=== PATIENT | male | born 1960 | race Hispanic/Latino ===

== ENCOUNTER 2018-07-20 13:19 | Inpatient (IN) | payer BC ==
[2018-07-20 13:24] VITALS: BMI 28.5
--- NOTE | 2018-07-20 13:40 | ED PDOC ---
Arrival/HPI - General Chief Complaint: Chest Pain Time Seen by Provider: 07/20/18 13:22 Historian: Patient - History of Present Illness Narrative History of Present Illness (Text): 07/20/18 13:37 A 58 year old male, whose past medical history includes non- compliant hypertension and diabetes, presents to the emergency department from PMD's office for abnormal EKG findings. Patient notes that he has been experiencing chest pain since 05/23. The patient notes that the pain come on intermittently and feels like pressure. The patient denies fevers, chills, headache, dizziness, shortness of breath, dyspnea on exertion, cough, abdominal pain, nausea, vomiting, diarrhea, back pain, neck pain, urinary/bowel changes, or any other complaint. PMD: Dr. Kulkarni Time/Duration: Prior to Arrival Symptom Onset: Sudden Symptom Course: Unchanged Activities at Onset: Rest, Light Context: Other (PMD's office) Past Medical History - Provider Review Nursing Documentation Reviewed: Yes - Infectious Disease Hx of Infectious Diseases: None - Cardiac Hx Hypertension: Yes - Endocrine/Metabolic Hx Diabetes Mellitus Type 2: Yes - Psychiatric Hx Substance Use: No - Surgical History Other/Comment: cyst removal to L upper back - Anesthesia Hx Anesthesia Reactions: No Hx Malignant Hyperthermia: No Family/Social History - Physician Review Nursing Documentation Reviewed: Yes Family/Social History: No Known Family HX Smoking Status: Current Some Days Smoker Hx Alcohol Use: Yes Frequency of alcohol use: Socially Hx Substance Use: No Allergies/Home Meds Allergies/Adverse Reactions: Allergies No Known Allergies Allergy (Verified 07/20/18 13:25) Review of Systems - Physician Review All systems were reviewed & negative as marked: Yes - Review of Systems Constitutional: absent: Fevers Respiratory: absent: SOB, Cough Cardiovascular: Chest Pain. absent: FRANK Gastrointestinal: absent: Abdominal Pain, Stool Changes, Diarrhea, Nausea, Vomiting Genitourinary Male: absent: Urinary Output Changes Musculoskeletal: absent: Back Pain, Neck Pain Neurological: absent: Headache, Dizziness Physical Exam Vital Signs Reviewed: Yes Vital Signs Temp Pulse Resp BP Pulse Ox 07/20/18 13:21 98.1 F 72 18 205/103 H 97 Temperature: Afebrile Blood Pressure: Hypertensive Pulse: Regular Respiratory Rate: Normal Appearance: Positive for: Well-Appearing, Non-Toxic, Comfortable Pain Distress: None Mental Status: Positive for: Alert and Oriented X 3 - Systems Exam Head: Present: Atraumatic, Normocephalic Pupils: Present: PERRL Extroacular Muscles: Present: EOMI Conjunctiva: Present: Normal Mouth: Present: Moist Mucous Membranes Neck: Present: Normal Range of Motion Respiratory/Chest: Present: Clear to Auscultation, Good Air Exchange. No: Respiratory Distress, Accessory Muscle Use Cardiovascular: Present: Regular Rate and Rhythm, Normal S1, S2. No: Murmurs Abdomen: No: Tenderness, Distention, Peritoneal Signs Back: Present: Normal Inspection Upper Extremity: Present: Normal Inspection. No: Cyanosis, Edema Lower Extremity: Present: Normal Inspection. No: Edema Neurological: Present: GCS=15, CN II-XII Intact, Speech Normal Skin: Present: Warm, Dry, Normal Color. No: Rashes Psychiatric: Present: Alert, Oriented x 3, Normal Insight, Normal Concentration Medical Decision Making ED Course and Treatment: 07/20/18 13:40 Impression: A 58 year old male presents to the emergency department from PMD's office s/p abnormal EKG reading. Plan: -- EKG -- Chest X-ray -- Urinalysis -- Labs -- Aspirin -- Reassess and disposition Prior Visits: Notes and results from previous visits were reviewed. Progress Notes: EKG shows NSR at 69 [address]PM. Non- specific ST- T wave changes. Suspicious for [facility]. 07/20/18 14:23: Case discussed in detail with Dr. Armando Byrd (Hospitalist). Chest X-ray Dictator : Rickey Carter MD Report Date : 07/20/2018 14:34:45 IMPRESSION: No active disease. 07/20/18 14:51: Case discussed in detail with Dr. Ulloa. - Lab Interpretations I have reviewed the lab results: Yes - RAD Interpretation Radiology Orders: 07/20/18 13:29 CHEST PORTABLE [RAD] Stat - EKG Interpretation Interpreted by ED Physician: Yes Type: 12 lead EKG - Medication Orders Current Medication Orders: Discontinued Medications Aspirin (Aspirin) 325 mg PO STAT STA Stop: 07/20/18 13:30 - Scribe Statement The provider has reviewed the documentation as recorded by the Kieranibe Kaitlyn Eduardo Provider Scribe Attestation: All medical record entries made by the Scribe were at my direction and personally dictated by me. I have reviewed the chart and agree that the record accurately reflects my personal performance of the history, physical exam, medical decision making, and the department course for this patient. I have also personally directed, reviewed, and agree with the discharge instructions and disposition. Disposition/Present on Arrival - Present on Arrival History of DVT/PE: No History of Uncontrolled Diabetes: No Urinary Catheter: No History of Decub. Ulcer: No History Surgical Site Infection Following: None - Disposition Forms: [employer] (Vietnamese)
[2018-07-20 13:52] LABS: BASO # 0.04 K/mm3 (0.0-2.0); BASO % 0.6 % (0.0-3.0); EOS # 0.1 (0.0-0.7); EOS % 1.9 % (1.5-5.0); LYMPH # 2.6 (1.2-3.4); MEAN CELL VOLUME 90.6 fl (80.0-105.0); MEAN CORPUSCULAR HEMOGLOBIN 31.4 pg (25.0-35.0); MEAN CORPUSCULAR HGB CONC 34.6 g/dl (31.0-37.0); MEAN PLATELET VOLUME 11.3 fl (7.0-11.0); MONO # 0.5 (0.1-0.6); MONO % 6.8 % (1.0-6.0); RBC 4.78 10^6/uL (3.5-6.1); RED CELL DISTRIBUTION WIDTH 12.9 % (11.5-14.5); WHITE BLOOD COUNT 6.8 10^3/uL (4.5-11.0)
[2018-07-20 14:01] LABS: PARTIAL THROMBOPLASTIN TIME 33.2 Seconds (26.9-38.3); PROTHROMBIN TIME 11.1 SECONDS (9.4-12.5)
[2018-07-20 14:04] LABS: ALB/GLOB RATIO 1.4 (1.1-1.8); ALBUMIN 4.2 g/dL (3.0-4.8); ALT/SGPT 19 U/L (7-56); AST/SGOT 31 U/L (17-59); BLOOD UREA NITROGEN 8 mg/dL (7-21); CALCIUM 9.3 mg/dL (8.4-10.5); GFR NON-AFRICAN AMERICAN > 60
[2018-07-20 14:14] LABS: TROPONIN I < 0.01 ng/mL
[2018-07-20 14:25] LABS: URINE BILIRUBIN NEGATIVE (NEGATIVE); URINE BLOOD NEGATIVE (NEGATIVE); URINE GLUCOSE (UA) NEGATIVE (NEGATIVE); URINE LEUKOCYTE ESTERASE SMALL Leu/uL (NEGATIVE); URINE PROTEIN NEGATIVE mg/dL (<30 mg/dL); URINE UROBILINOGEN 0.2 E.U./dL (<1 E.U./dL)
[2018-07-20 14:26] LABS: URINE APPEARANCE CLEAR (CLEAR); URINE COLOR YELLOW (YELLOW)
[2018-07-20 14:35] LABS: URINE RBC 0 - 2 /hpf (0-2)
[2018-07-20 14:36] LABS: URINE BACTERIA FEW /hpf
--- NOTE | 2018-07-20 14:38 | RAD ---
Date of service: 07/20/2018 HISTORY: cp COMPARISON: No prior. TECHNIQUE: 1 view obtained. FINDINGS: LUNGS: No active pulmonary disease. PLEURA: No significant pleural effusion identified, no pneumothorax apparent. CARDIOVASCULAR: No aortic atherosclerotic calcification present. Normal cardiac size. No pulmonary vascular congestion. OSSEOUS STRUCTURES: No significant abnormalities. VISUALIZED UPPER ABDOMEN: Normal. OTHER FINDINGS: None. IMPRESSION: No active disease.
[2018-07-20] MEDS ORDERED: Enoxaparin 100 mg Syringe SC STA (14:51)
--- NOTE | 2018-07-20 15:16 | CP.PCM.HP ---
<Stefanie Ahmadi - Last Filed: 07/20/18 15:19> History of Present Illness - History of Present Illness History of Present Illness: HISTORY & PHYSICAL NOTE FOR DR. AVA Ahmadi PGY1 58 y/o M HTN, DM2, HLD, GERD presents to ED with complaints of diffuse chest pain that he has noticed over the past 2 months that comes & goes, occurs at rest, that he describes as "arthritis like pain", lasts about 20 minutes, alleviated with holding his breath and taking aspirin. He reports he was at his PMDs office where his BP was in the 200s and was sent to ED. He was given BP meds at the clinic that he does not recall. He reports non-compliance with his home medications since 2 years ago and has not followup up regularly with his PMD. He reports taking zantac often for his symptoms of GERD. He otherwise denies fevers, chills, headache, dizziness, shortness of breath, dyspnea on exertion, cough, nausea, vomiting, diarrhea, back pain, neck pain, urinary/bowel changes. PMH: HTN, DM2, HLD, GERD All: NKDA PSH: L back cyst removal FH: Father: , 54 y/o CVA. Mother: , 49 y/o PA SH: Active tobacco smoker, 1 pack/day x 45yrs. Occasional ETOH use. 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 Nazario Pharmacy: [facility] Present on Admission - Present on Admission Any Indicators Present on Admission: No Review of Systems - Review of Systems Review of Systems: per HPI Past Patient History - Infectious Disease Hx of Infectious Diseases: None - Past Social History Smoking Status: Current Some Days Smoker - CARDIAC Hx Hypertension: Yes - ENDOCRINE/METABOLIC Hx Diabetes Mellitus Type 2: Yes - PSYCHIATRIC Hx Substance Use: No - SURGICAL HISTORY Other/Comment: cyst removal to L upper back - ANESTHESIA Hx Anesthesia Reactions: No Hx Malignant Hyperthermia: No Meds Allergies/Adverse Reactions: Allergies Allergy/AdvReac Type Severity Reaction Status Date / Time No Known Allergies Allergy Verified 07/20/18 15:24 Results - Vital Signs Recent Vital Signs: Last Vital Signs Temp 98.1 F 07/20/18 13:21 Pulse 62 04/23/19 14:15 Resp 18 07/20/18 14:15 BP 156/71 H 07/20/18 14:15 Pulse Ox 96 07/20/18 14:15 - Labs Result Diagrams: 07/20/18 13:40 07/20/18 13:40 Labs: Laboratory Results - last 24 hr 07/20/18 07/20/18 07/20/18 13:40 13:40 13:40 WBC 6.8 RBC 4.78 Hgb 15.0 Hct 43.3 MCV 90.6 MCH 31.4 MCHC 34.6 RDW 12.9 Plt Count 198 MPV 11.3 H Neut % (Auto) 52.7 Lymph % (Auto) 38.0 H [place] % (Auto) 6.8 H Eos % (Auto) 1.9 Baso % (Auto) 0.6 Lymph # (Auto) 2.6 [place] # (Auto) 0.5 Eos # (Auto) 0.1 Baso # (Auto) 0.04 Absolute Neuts (auto) 3.59 PT 11.1 INR 1.00 APTT 33.2 Sodium 140 Potassium 4.0 Chloride 105 Carbon Dioxide 26 Anion Gap 13 BUN 8 Creatinine 0.7 L Est GFR ( Amer) > 60 Est GFR (Non-Af Amer) > 60 Random Glucose 157 H Calcium 9.3 Magnesium 2.0 Total Bilirubin 0.3 AST 31 ALT 19 Alkaline Phosphatase 84 Lactate Dehydrogenase 474 Total Creatine Kinase 155 Troponin I < 0.01 Total Protein 7.2 Albumin 4.2 Globulin 2.9 Albumin/Globulin Ratio 1.4 Urine Color Urine Appearance Urine pH Ur Specific [place] Urine Protein Urine Glucose (UA) Urine Ketones Urine Blood Urine Nitrate Urine Bilirubin Urine Urobilinogen Ur Leukocyte Esterase Urine RBC Urine WBC Ur Epithelial Cells Urine Bacteria 07/20/18 14:15 WBC RBC Hgb Hct MCV MCH MCHC RDW Plt Count MPV Neut % (Auto) Lymph % (Auto) [place] % (Auto) Eos % (Auto) Baso % (Auto) Lymph # (Auto) [place] # (Auto) Eos # (Auto) Baso # (Auto) Absolute Neuts (auto) PT INR APTT Sodium Potassium Chloride Carbon Dioxide Anion Gap BUN Creatinine Est GFR ( Amer) Est GFR (Non-Af Amer) Random Glucose Calcium Magnesium Total Bilirubin AST ALT Alkaline Phosphatase Lactate Dehydrogenase Total Creatine Kinase Troponin I Total Protein Albumin Globulin Albumin/Globulin Ratio Urine Color Yellow Urine Appearance Clear Urine pH 7.0 Ur Specific [place] <= 1.005 Urine Protein Negative Urine Glucose (UA) Negative Urine Ketones Negative Urine Blood Negative Urine Nitrate Negative Urine Bilirubin Negative Urine Urobilinogen 0.2 Ur Leukocyte Esterase Small H Urine RBC 0 - 2 Urine WBC 2 - 5 Ur Epithelial Cells None Urine Bacteria Few Assessment & Plan - Assessment and Plan (Free Text) Assessment: 58 y/o M with PMH of HTN, DM2, HLD, GERD presents to ED with complaints of chest pain with EKG changes Plan: Chest Pain r/o ACS trend troponins Q6h Loading dose aspirin/plavix & therapeutic lovenix given in ED Continue aspirin daily Start statin, b-jacy f/u TSH Cardiology consulted, reviewed EKG, not STEMI plan for cardiac catheterization tomorrow DM2 Start insulin sliding scale F/u Hgb a1c hold home metformin HTN continue home lisinopril start metoprolol tartarate 25mg HLD Start atorvastatin f/u lipid panel DVT/GI: Lovenox/pepcid Case reviewed with attending physician, Dr. Carson Ahmadi PGY1 <Ava Byrd - Last Filed: 07/20/18 16:48> Results - Vital Signs Recent Vital Signs: Last Vital Signs Temp 98.2 F 07/20/18 15:22 Pulse 58 L 07/20/18 15:22 Resp 18 07/20/18 15:22 BP 148/68 07/20/18 15:22 Pulse Ox 96 07/20/18 15:22 - Labs Result Diagrams: 07/20/18 13:40 07/20/18 13:40 Labs: Laboratory Results - last 24 hr 07/20/18 07/20/18 07/20/18 13:40 13:40 13:40 WBC 6.8 RBC 4.78 Hgb 15.0 Hct 43.3 MCV 90.6 MCH 31.4 MCHC 34.6 RDW 12.9 Plt Count 198 MPV 11.3 H Neut % (Auto) 52.7 Lymph % (Auto) 38.0 H [place] % (Auto) 6.8 H Eos % (Auto) 1.9 Baso % (Auto) 0.6 Lymph # (Auto) 2.6 [place] # (Auto) 0.5 Eos # (Auto) 0.1 Baso # (Auto) 0.04 Absolute Neuts (auto) 3.59 PT 11.1 INR 1.00 APTT 33.2 Sodium 140 Potassium 4.0 Chloride 105 Carbon Dioxide 26 Anion Gap 13 BUN 8 Creatinine 0.7 L Est GFR ( Amer) > 60 Est GFR (Non-Af Amer) > 60 POC Glucose (mg/dL) Random Glucose 157 H Calcium 9.3 Magnesium 2.0 Total Bilirubin 0.3 AST 31 ALT 19 Alkaline Phosphatase 84 Lactate Dehydrogenase 474 Total Creatine Kinase 155 Troponin I < 0.01 Total Protein 7.2 Albumin 4.2 Globulin 2.9 Albumin/Globulin Ratio 1.4 Triglycerides Cholesterol LDL Cholesterol Direct HDL Cholesterol Free T4 TSH 3rd Generation Urine Color Urine Appearance Urine pH Ur Specific [place] Urine Protein Urine Glucose (UA) Urine Ketones Urine Blood Urine Nitrate Urine Bilirubin Urine Urobilinogen Ur Leukocyte Esterase Urine RBC Urine WBC Ur Epithelial Cells Urine Bacteria 07/20/18 07/20/18 07/20/18 14:00 14:00 14:15 WBC RBC Hgb Hct MCV MCH MCHC RDW Plt Count MPV Neut % (Auto) Lymph % (Auto) [place] % (Auto) Eos % (Auto) Baso % (Auto) Lymph # (Auto) [place] # (Auto) Eos # (Auto) Baso # (Auto) Absolute Neuts (auto) PT INR APTT Sodium Potassium Chloride Carbon Dioxide Anion Gap BUN Creatinine Est GFR ( Amer) Est GFR (Non-Af Amer) POC Glucose (mg/dL) Random Glucose Calcium Magnesium Total Bilirubin AST ALT Alkaline Phosphatase Lactate Dehydrogenase Total Creatine Kinase Troponin I Total Protein Albumin Globulin Albumin/Globulin Ratio Triglycerides 141 Cholesterol 184 LDL Cholesterol Direct 124 HDL Cholesterol 39 Free T4 1.25 TSH 3rd Generation 0.87 Urine Color Yellow Urine Appearance Clear Urine pH 7.0 Ur Specific [place] <= 1.005 Urine Protein Negative Urine Glucose (UA) Negative Urine Ketones Negative Urine Blood Negative Urine Nitrate Negative Urine Bilirubin Negative Urine Urobilinogen 0.2 Ur Leukocyte Esterase Small H Urine RBC 0 - 2 Urine WBC 2 - 5 Ur Epithelial Cells None Urine Bacteria Few 07/20/18 16:13 WBC RBC Hgb Hct MCV MCH MCHC RDW Plt Count MPV Neut % (Auto) Lymph % (Auto) [place] % (Auto) Eos % (Auto) Baso % (Auto) Lymph # (Auto) [place] # (Auto) Eos # (Auto) Baso # (Auto) Absolute Neuts (auto) PT INR APTT Sodium Potassium Chloride Carbon Dioxide Anion Gap BUN Creatinine Est GFR ( Amer) Est GFR (Non-Af Amer) POC Glucose (mg/dL) 139 H Random Glucose Calcium Magnesium Total Bilirubin AST ALT Alkaline Phosphatase Lactate Dehydrogenase Total Creatine Kinase Troponin I Total Protein Albumin Globulin Albumin/Globulin Ratio Triglycerides Cholesterol LDL Cholesterol Direct HDL Cholesterol Free T4 TSH 3rd Generation Urine Color Urine Appearance Urine pH Ur Specific [place] Urine Protein Urine Glucose (UA) Urine Ketones Urine Blood Urine Nitrate Urine Bilirubin Urine Urobilinogen Ur Leukocyte Esterase Urine RBC Urine WBC Ur Epithelial Cells Urine Bacteria Attending/Attestation - Attestation I have personally seen and examined this patient.: Yes I have fully participated in the care of the patient.: Yes I have reviewed all pertinent clinical information: Yes Notes (Text): Patient seen and examined by me with resident at approximately at 2:35PM on 07/20/18 in the ED. Case including HPI, physical exam, and assessment and plan discussed with resident. Agree with above with following additions/corrections. Patient is a 58-year-old male with past medical history significant for hypertension, type 2 diabetes, hyperlipidemia, tobacco abuse, and GERD who presents to the emergency room from his primary care doctor's office with chest pain that has been present for approximately 2 months. Patient states that he has not seen his doctor in approximately 4 to 5 years. He states he went to the office today secondary to the chest pain he has been having for 2 months. The pain comes and goes. Patient states it is not associated with anything in particular. He states the pain is across his entire chest and radiates to bilateral arms. There is no associated diaphoresis. Patient states that the pain sometimes will go away when he holds his breath. Pain can last anywhere from 10- 20 minutes. Patient does take aspirin with relief. Patient states that he thought it was "arthritis pain." No associated shortness of breath. Patient states he also has reflux and takes [id number] Zantac. Patient denies any fevers or chills. No headaches or dizziness. No change in vision. No lightheadedness. No tingling or numbness. No dysuria. No diarrhea or constipation. Patient states he used to take medications for DM2, HTN, and Hyperlipidemia but has not taken medications in 2 years because he did not want to take the medications. 12 point review of systems reviewed by me. Please see above HPI, all other systems are negative. Family history: Mother at the age of 54 of a stroke. Father of a heart attack at age 46. Physical exam: General: Awake and alert lying in bed in no acute distress HEENT: Normocephalic, atraumatic. Extraocular muscles intact. Pupils equal and reactive, no scleral icterus. Oropharynx pink and moist. No pharyngeal erythema or exudate appreciated. Neck supple. Hearing grossly intact. Ears and nose externally unremarkable. Cardiovascular: Regular rhythm. Normal S1 and S2. No murmurs, rubs, or gallops appreciated Pulmonary: Normal respiratory effort. No rhonchi, rales, or wheezing appreciated Gastrointestinal: Soft, Nontender. Nondistended. Positive bowel sounds all 4 quadrants. No guarding. Musculoskeletal: Moves all extremities. Positive bilateral calf tenderness. Bilateral lower extremities with pitting edema. Central nervous system: AAO x3. No focal deficits appreciated. Dermatologic: Skin warm and dry. Assessment and plan: Patient is a 58-year-old male with past medical history significant for hypertension, type 2 diabetes, hyperlipidemia, tobacco abuse, and GERD who presents to the emergency room from his primary care doctor's office with chest pain that has been present for approximately 2 months. 1. Chest pain. First troponin within normal limits. Follow serial troponins. Cardiology recommendations appreciated. EKG with changes. Patient given loading dose of plavix and therapeutic dose of lovenox per cardiology. Started on ASA, statin, and beta jacy. Likely for cardiac cath in AM. Monitor on telemetry. Follow up 2D echo. 2. Hypertension. Started on lopressor per cardio. Monitor blood pressure and adjust medications as needed. 3. Bilateral lower extremity edema. Postive calf tenderness. Follow up bilateral lower extremity venous dopplers to rule out DVT. 4. Noncompliance with medications. Patient counseled at length on need for compliance with home medications and follow up with primary care doctor. 5. DM2. Patient off medications for 2 years. Follow up HgbA1C. Placed on insulin sliding scale. Monitor accuchecks. 6. GERD. Placed on Pepcid. 7. Tobacco abuse. Counseled at length on tobacco cessation. 8. GI/DVT prophylaxis. Given therapeutic dose of lovenox/pepcid. Case was discussed in detail with the patient regarding current diagnosis and treatment plan. All questions answered.
[2018-07-20 16:11] LABS: HDL CHOLESTEROL 39 mg/dL (29-60)
[2018-07-20 16:22] LABS: LDL CHOLESTEROL 124 mg/dL (0-129)
[2018-07-20 16:28] LABS: FREE T4 1.25 ng/dL (0.78-2.19)
[2018-07-20] MEDS: Insulin Reg-LOW-Coverage SC SCH ×2 (17:33→21:54)
--- NOTE | 2018-07-20 18:20 | CARD ---
APPROVED REPORT Date of service: 07/20/2018 EKG Measurement Heart [id number] <Conclusion> Normal sinus rhythm Inferior infarct, age Old? ST & T wave abnormality, consider anterior ischemia Abnormal ECG
[2018-07-20] MEDS ORDERED: Pneumococcal 23-Valent Vaccine IM ONE (18:40)
--- NOTE | 2018-07-21 02:38 | CON ---
DATE: 07/20/2018 CONSULT SERVICE: Cardiology. REASON FOR CONSULTATION AND FOLLOWUP: Acute coronary syndrome, unstable angina, cardiac evaluation. BRIEF CLINICAL HISTORY: A 58-year-old male with past medical history significant for diabetes, hypertension, hyperlipidemia, noncompliance with the medication, admitted here after being sent by Dr. Nazario from her office because of complain of chest pain for 2 months, diffuse, throbbing type and sometimes increases when taking a deep breath, sometime increases on coughing. The patient is very noncompliant, does not take any medicine. In Dr. Nazario's office, the patient blood pressure was 200 so some medication was given and sent to the ER. He does have abnormal EKG. EKG shows symmetrical T inversions in V2, V3, V4, V5 but no ST elevation. But every now and then off and on chest pain and increases on exertion. PAST MEDICAL HISTORY: Significant for diabetes, hypertension, hyperlipidemia, gastroesophageal reflux. ALLERGIES: NO KNOWN DRUG ALLERGY. CURRENT MEDICATIONS: The patient is supposed to take lisinopril 10 mg daily, metformin 500 mg daily, and Zantac, but the patient does not take any medication except Zantac. FAMILY HISTORY: Significant for cardiovascular disease. Father had CVA at age of 45. Mother had myocardial infarction at age of 49. SOCIAL HISTORY: Active tobacco abuse, one pack a day since last 40 years. Socially drinks. Denies any substance abuse. 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 REVIEW OF SYSTEMS: As per HPI. PHYSICAL EXAMINATION GENERAL: As follows; Height of the patient 6 feet, weight of the patient 210 pounds, body mass index 28.5 kg/m2. VITAL SIGNS: Temperature afebrile, heart rate 56, blood pressure 148/68. HEENT: PERRLA. Extraocular muscles intact. NECK: Supple. No carotid bruits. No thyromegaly. CHEST: Clear to auscultation. HEART: S1, S2 regular. ABDOMEN: Soft. EXTREMITIES: Clubbing and cyanosis negative. LABORATORY DATA: Blood workup as follows; WBC 6.8, hemoglobin 15, hematocrit 43.3, platelet count 198. Chemistry shows sodium 140, potassium 4, chloride 105, carbon dioxide 26, anion gap of 13, BUN 8, creatinine 0.7. Troponin 0.01. EKG shows normal sinus, T inversions in V2, V3, V4, Q-wave in II, III, cannot rule out previous TX of indeterminate age. IMPRESSION: A 58-year-old male with past medical history of diabetes, hypertension, hyperlipidemia, noncompliance with medication, admitted with chest pain, unstable angina with abnormal electrocardiogram. So far troponin remains negative. Very noncompliant with medication. RECOMMENDATIONS: Lipid profile, TSH, hemoglobin A1c. Start Lovenox. Load with Plavix and aspirin. Keep n.p.o. after 12 midnight for possible cardiac catheterization in the morning. Further recommendations after cardiac catheterization. We will follow with you. Thank you Dr. Byrd for providing this opportunity in taking care of the patient, Dimsa Tillman. Shwetha Ulloa MD
[2018-07-21 05:41] VITALS: O2SAT 94
[2018-07-21] MEDS ORDERED: Lidocaine PF 2% (5 ml) Inj (For Cardiac Arrhy) ONE (06:42)
[2018-07-21] MEDS ORDERED: Verapamil 2 ML ONE (06:42)
[2018-07-21] MEDS ORDERED: Iohexol 350mgl/ml 50 ML ONE (06:43)
[2018-07-21] MEDS ORDERED: Phenylephrine 10 mg/ml Inj ONE (06:43)
[2018-07-21] MEDS ORDERED: Iodixanol 320 MG/ML 100 ML BOTTLE IV ONE (06:43)
[2018-07-21] MEDS ORDERED: Iodixanol 320 MG/ML 200 ML BOTTLE IV ONE (06:43)
[2018-07-21] MEDS ORDERED: Nitroglycerin 50mg in D5W 50 MG/250 ML BOTTLE IV ONE (06:43)
[2018-07-21] MEDS ORDERED: Heparin 2,000 ML IV ONE (06:44)
[2018-07-21] MEDS ORDERED: Midazolam 2 MG/2 ML VIAL ONE ×2 (07:15→07:29)
[2018-07-21 07:26] LABS: BASO # 0.03 K/mm3 (0.0-2.0); BASO % 0.4 % (0.0-3.0); EOS # 0.2 (0.0-0.7); EOS % 2.8 % (1.5-5.0); HEMOGLOBIN 14.5 g/dL (14.0-18.0); LYMPH # 3.3 (1.2-3.4); LYMPH % 45.1 % (22.0-35.0); MEAN CELL VOLUME 91.4 fl (80.0-105.0); MEAN CORPUSCULAR HEMOGLOBIN 31.2 pg (25.0-35.0); MEAN CORPUSCULAR HGB CONC 34.1 g/dl (31.0-37.0); MEAN PLATELET VOLUME 11.6 fl (7.0-11.0); MONO # 0.5 (0.1-0.6); MONO % 7.3 % (1.0-6.0); RBC 4.65 10^6/uL (3.5-6.1); RED CELL DISTRIBUTION WIDTH 13.1 % (11.5-14.5); WHITE BLOOD COUNT 7.3 10^3/uL (4.5-11.0)
[2018-07-21] MEDS ORDERED: Eptifibatide 20 mg/10mL Inj IVP ONE (07:59)
[2018-07-21 08:02] LABS: ALB/GLOB RATIO 1.4 (1.1-1.8); ALBUMIN 3.7 g/dL (3.0-4.8); ALT/SGPT 26 U/L (7-56); AST/SGOT 33 U/L (17-59); BLOOD UREA NITROGEN 11 mg/dL (7-21); CALCIUM 9.1 mg/dL (8.4-10.5); GFR NON-AFRICAN AMERICAN > 60
[2018-07-21] MEDS ORDERED: Sodium Chloride 0.9% 1,000 ML IV SCH (08:45)
[2018-07-21] MEDS: Insulin Reg-LOW-Coverage SC SCH ×3 (09:00→17:00)
[2018-07-21 09:02] VITALS: TEMP 97.6
--- NOTE | 2018-07-21 09:09 | CP.PCM.PN ---
Subjective - Date & Time of Evaluation Date of Evaluation: 07/21/18 Time of Evaluation: 08:30 - Subjective Subjective: INTERNAL MEDICINE PROGRESS NOTE FOR DR. TRAVIS Ahmadi PGY1 Objective - Vital Signs/Intake and Output Vital Signs (last 24 hours): Temp Pulse Resp BP Pulse Ox 97.6 F 57 L 18 143/83 94 L 07/21/18 08:45 07/21/18 08:45 07/21/18 08:45 07/21/18 08:45 07/21/18 05:39 Intake and Output: 07/21/18 07/21/18 06:59 18:59 Intake Total 420 Output Total 5 Balance 415 - Medications Medications: Current Medications Aspirin (Ecotrin) [address] [facility] Atorvastatin Calcium (Lipitor) [address] [facility] Last Admin: 07/20/18 17:31 Dose: 40 mg Clopidogrel Bisulfate (Plavix) [address] [facility] Famotidine (Pepcid) 20 mg PO 1000,2200 [facility] Last Admin: 07/20/18 21:54 Dose: 20 mg Sodium Chloride (Sodium Chloride 0.9%) 1,000 mls @ 100 mls/hr IV .Q10H [facility] Stop: 07/21/18 14:00 Insulin Human Regular (Humulin R Low) [address] [facility]; Protocol Last Admin: 07/20/18 21:54 Dose: Not Given Lisinopril (Zestril) 2.[address] [facility] Metoprolol Tartrate (Lopressor) 25 mg PO 0800,1800 [facility] Last Admin: 07/21/18 07:59 Dose: Not Given - Labs Labs: 07/21/18 07:10 07/21/18 07:10 PT 11.1 SECONDS (9.4-12.5) 07/20/18 13:40 INR 1.00 07/20/18 13:40 APTT 33.2 Seconds (26.9-38.3) 07/20/18 13:40 Assessment and Plan - Assessment and Plan (Free Text) Assessment: 58 y/o M with PMH of HTN, DM2, HLD, GERD presents to ED with complaints of chest pain with EKG changes in septal Plan: Chest Pain r/o ACS EKG revealing t-wave inversions in septo-lateral leads Loading dose aspirin/plavix & therapeutic lovenix given yesterday Continue aspirin daily Start statin, b-jacy TSH wnl Cardiology consulted, reviewed EKG, not STEMI plan for cardiac catheterization tomorrow DM2 A1c: 7.8% Start insulin sliding scale F/u Hgb a1c hold home metformin staff educator ordered HTN continue home lisinopril start metoprolol tartarate 25mg HLD Start atorvastatin f/u lipid panel GERD continue pepcid DVT/GI: Lovenox/pepcid Case reviewed with attending physician, Dr. Travis Ahmadi PGY1
--- NOTE | 2018-07-21 09:16 | CPOSTOP ---
DATE: 07/21/2018 CARDIOVASCULAR LAB POST PROCEDURE NOTE PHYSICIAN: Shwetha Ulloa MD SHIFT COORDINATOR: Antoinette Wyman, jewelry technician. TYPE OF ANESTHESIA: Moderate conscious sedation. Total 3 mg of Versed and 150 of fentanyl given periodically. Started 1 mg of Versed and 50 of fentanyl. PRE-PROCEDURE DIAGNOSES: Unstable angina and acute coronary syndrome. PROCEDURE PERFORMED: 1. Left heart catheterization. 2. Stenting of mid left anterior descending. FINDINGS: Mid LAD 85% stenosis, RCA chronic total occlusion, mild aortic stenosis. Two vessel disease. Left anterior descending , RCA chronic total occlusion. POST PROCEDURE CONDITION: The patient's condition is stable. VASCULAR ACCESS SITE: Left radial artery. CLOSURE DEVICE: TR-band. TOTAL RADIATION DOSE: 92141.5 milligray unit. TOTAL CUMULATIVE DOSE: 5523.4 milligray unit. FLUORO TIME: 6.9 minutes. Shwetha Ulloa MD
--- NOTE | 2018-07-21 09:45 | US ---
HISTORY: Leg pain and swelling. Evaluate for DVT PHYSICIAN(S): Edgar Kincaid MD. TECHNIQUE: Duplex sonography and color-flow Doppler with graded compression were used to evaluate the deep venous systems of both lower extremities. FINDINGS: The visualized deep venous systems of both lower extremities are sonographically normal and compressible. Normal wave forms and augmentation are seen. There is no sonographic evidence for deep venous thrombosis in the visualized segments of both lower extremities. IMPRESSION: No sonographic evidence for deep venous thrombosis in the visualized segments of both lower extremities.
[2018-07-21] MEDS ORDERED: Enoxaparin 40 mg Syringe SC SCH (10:00)
--- NOTE | 2018-07-21 10:42 | CP.PCM.DIS ---
<Stefanie Ahmadi - Last Filed: 07/21/18 11:10> Provider - Provider Date of Admission: 07/20/18 14:25 Attending physician: Ava Byrd DO Primary care physician: Lucille Nazario MD Consults: 07/20/18 18:40 Inpatient ENGINEER [employer]PR[employer] Core Measures Referral Routine Comment: Physician Instructions: Reason For Exam: EVALUATION Transition In Care/Readmission Reduction Routine Comment: Physician Instructions: Reason For Exam: EVALUATION 07/20/18 21:43 Consult [Physician Consult] Routine Comment: ACS Consulting Provider: Shwetha Ulloa Consulting Physician: Shwetha Ulloa Reason for Consult: ACS 07/20/18 23:46 Diabetic Education Referral Routine Comment: non-compliant with medications at home Physician Instructions: Reason For Exam: protocol Time Spent in preparation of Discharge (in minutes): 45 Diagnosis - Discharge Diagnosis (1) Stenosis of left anterior descending (LAD) artery Status: Resolved (2) RCA occlusion Status: Chronic (3) Diabetes Status: Chronic (4) Hypertension Status: Chronic (5) GERD (gastroesophageal reflux disease) Status: Chronic (6) Coronary artery disease Status: Chronic Hospital Course - Lab Results Lab Results: Most Recent Lab Values WBC 7.3 10^3/uL (4.5-11.0) 07/21/18 07:10 RBC 4.65 10^6/uL (3.5-6.1) 07/21/18 07:10 Hgb 14.5 g/dL (14.0-18.0) 07/21/18 07:10 Hct 42.5 % (42.0-52.0) 07/21/18 07:10 MCV 91.4 fl (80.0-105.0) 07/21/18 07:10 MCH 31.2 pg (25.0-35.0) 07/21/18 07:10 MCHC 34.1 g/dl (31.0-37.0) 07/21/18 07:10 RDW 13.1 % (11.5-14.5) 07/21/18 07:10 Plt Count 190 10^3/uL (120.0-450.0) 07/21/18 07:10 MPV 11.6 fl (7.0-11.0) H 07/21/18 07:10 Neut % (Auto) 44.4 % (50.0-68.0) L 07/21/18 07:10 Lymph % (Auto) 45.1 % (22.0-35.0) H 07/21/18 07:10 [place] % (Auto) 7.3 % (1.0-6.0) H 07/21/18 07:10 Eos % (Auto) 2.8 % (1.5-5.0) 07/21/18 07:10 Baso % (Auto) 0.4 % (0.0-3.0) 07/21/18 07:10 Lymph # (Auto) 3.3 (1.2-3.4) 07/21/18 07:10 [place] # (Auto) 0.5 (0.1-0.6) 07/21/18 07:10 Eos # (Auto) 0.2 (0.0-0.7) 07/21/18 07:10 Baso # (Auto) 0.03 K/mm3 (0.0-2.0) 07/21/18 07:10 Absolute Neuts (auto) 3.23 (1.4-6.5) 07/21/18 07:10 PT 11.1 SECONDS (9.4-12.5) 07/20/18 13:40 INR 1.00 07/20/18 13:40 APTT 33.2 Seconds (26.9-38.3) 07/20/18 13:40 Sodium 140 mmol/L (132-148) 07/21/18 07:10 Potassium 4.1 mmol/L (3.6-5.0) 07/21/18 07:10 Chloride 107 mmol/L (98-107) 07/21/18 07:10 Carbon Dioxide 28 mmol/L (21-33) 07/21/18 07:10 Anion Gap 9 (10-20) L 07/21/18 07:10 BUN 11 mg/dL (7-21) 07/21/18 07:10 Creatinine 0.8 mg/dl (0.8-1.5) 07/21/18 07:10 Est GFR ( Amer) > 60 07/21/18 07:10 Est GFR (Non-Af Amer) > 60 07/21/18 07:10 POC Glucose (mg/dL) 156 mg/dL (65-110) H 07/21/18 09:06 Random Glucose 134 mg/dL (70-110) H 07/21/18 07:10 Hemoglobin A1c 7.8 % (4.2-6.5) H 07/20/18 14:00 Calcium 9.1 mg/dL (8.4-10.5) 07/21/18 07:10 Phosphorus 3.7 mg/dL (2.5-4.5) 07/21/18 07:10 Magnesium 2.0 mg/dL (1.7-2.2) 07/21/18 07:10 Total Bilirubin 0.6 mg/dL (0.2-1.3) 07/21/18 07:10 AST 33 U/L (17-59) 07/21/18 07:10 ALT 26 U/L (7-56) 07/21/18 07:10 Alkaline Phosphatase 83 U/L (38-126) 07/21/18 07:10 Lactate Dehydrogenase 474 U/L (333-699) 07/20/18 13:40 Total Creatine Kinase 155 U/L (35-230) 07/20/18 13:40 Troponin I < 0.01 ng/mL 07/21/18 02:01 Total Protein 6.4 g/dL (5.8-8.3) 07/21/18 07:10 Albumin 3.7 g/dL (3.0-4.8) 07/21/18 07:10 Globulin 2.7 gm/dL 07/21/18 07:10 Albumin/Globulin Ratio 1.4 (1.1-1.8) 07/21/18 07:10 Triglycerides 141 mg/dL (35-160) 07/20/18 14:00 Cholesterol 184 mg/dL (130-200) 07/20/18 14:00 LDL Cholesterol Direct 124 mg/dL (0-129) 07/20/18 14:00 HDL Cholesterol 39 mg/dL (29-60) 07/20/18 14:00 Free T4 1.25 ng/dL (0.78-2.19) 07/20/18 14:00 TSH 3rd Generation 0.87 mIU/mL (0.46-4.68) 07/20/18 14:00 Urine Color Yellow (YELLOW) 07/20/18 14:15 Urine Appearance Clear (CLEAR) 07/20/18 14:15 Urine pH 7.0 (4.7-8.0) 07/20/18 14:15 Ur Specific [place] <= 1.005 (1.005-1.035) 07/20/18 14:15 Urine Protein Negative mg/dL (<30 mg/dL) 07/20/18 14:15 Urine Glucose (UA) Negative mg/dL (NEGATIVE) 07/20/18 14:15 Urine Ketones Negative mg/dL (NEGATIVE) 07/20/18 14:15 Urine Blood Negative (NEGATIVE) 07/20/18 14:15 Urine Nitrate Negative (NEGATIVE) 07/20/18 14:15 Urine Bilirubin Negative (NEGATIVE) 07/20/18 14:15 Urine Urobilinogen 0.2 E.U./dL (<1 E.U./dL) 07/20/18 14:15 Ur Leukocyte Esterase Small Gamaliel/uL (NEGATIVE) H 07/20/18 14:15 Urine RBC 0 - 2 /hpf (0-2) 07/20/18 14:15 Urine WBC 2 - 5 /hpf (0-6) 07/20/18 14:15 Ur Epithelial Cells None /hpf (0-5) 07/20/18 14:15 Urine Bacteria Few /hpf (NONE) 07/20/18 14:15 - Hospital Course Hospital Course: Upon Admission: 58 y/o M HTN, DM2, HLD, GERD presents to ED with complaints of diffuse chest pain that he has noticed over the past 2 months that comes & goes, occurs at rest, that he describes as "arthritis like pain", lasts about 20 minutes, alleviated with holding his breath and taking aspirin. He reports he was at his PMDs office where his BP was in the 200s and was sent to ED. He was given BP meds at the clinic that he does not recall. He reports non-compliance with his home medications since 2 years ago and has not followup up regularly with his PMD. He reports taking zantac often for his symptoms of GERD. Hospital Course: Abdnormal EKG revealed symmetrical T wave inversion in V2 V3, V4, V5 but no ST elevations. troponin levels were (-) x 3. SBP upon presentation was in 200s. Loading dose of aspirin/plavix and therapeutic dose of lovenox were given in ED. He was evaluated by cardiology and taken to laborer cutting tool the next morning and found to have 85% stenosis of mid LAD with placement of ARDEN. Pt was also found to have complete RCA occlusion. L wrist radial access was used. Pt tolerated procedure well. Echocardiogram was performed Upon Discharge: Pt is feeling better. He is resting comfortably. He is denying chest pain, palpitations. His vitals have been stable. Labs wnl. He was evaluated by cardiology post-procedure and was instructed to follow-up closely with PMD & butadiene convertor operator. PT advised on smoking cessation, lifestyle modification, medication compliance and close outpatient followup. Pt instructed to visit closest ED if symptoms return or if he experiences new symptoms. Discharge Exam - Eye Exam Eye Exam: EOMI, Normal appearance - ENT Exam ENT Exam: Normal Exam - Neck Exam Neck exam: Normal Inspection - Respiratory Exam Respiratory Exam: NORMAL BREATHING PATTERN, UNREMARKABLE - Cardiovascular Exam Cardiovascular Exam: Bradycardia, REGULAR RHYTHM, +S1, +S2 - GI/Abdominal Exam GI & Abdominal Exam: Soft - Back Exam Back exam: NORMAL INSPECTION - Neurological Exam Neurological exam: Alert, Oriented x3 - Psychiatric Exam Psychiatric exam: Normal Affect, Normal Mood - Skin Skin Exam: Dry, Intact, Warm Discharge Plan - Discharge Medications Prescriptions: Aspirin [Ecotrin] 81 mg PO DAILY #30 tabec Atorvastatin [Lipitor] 40 mg PO DAILY #30 tab Carvedilol [Coreg] 3.125 mg PO BID 30 Days #60 tab Clopidogrel [Plavix] 75 mg PO DAILY #30 tab Lisinopril [Zestril] 2.5 mg PO DAILY #14 tab metFORMIN [glucOPHAGE] 500 mg PO BID #60 tab - Follow Up Plan Condition: STABLE Disposition: HOME/ ROUTINE Instructions: Cardiac Catheterization, Coronary Angioplasty (DC), Heart Disease in Diabetics (DC), Coronary Heart Disease (DC), Hypertension (DC) Additional Instructions: Patient Instructions: 1. Please STOP taking the following medication that you were taking at home Lisinopril 10mg Please do NOT start Metoprolol 25mg You are being discharged on new medications that you should start taking at home. Please START taking the following medications as prescribed: Aspirin 81mg. Take 1 tablet by mouth once a day Plavix 75mg. Take 1 tablet by mouth once a day Atorvastatin 40mg. Take 1 tablet by mouth at night time Lisinopril 2.5mg. Take 1 tablet by mouth once day Carvedilol 3.125mg. Take 1 tablet by mouth twice a day Metformin 500mg. Take 1 tablet by mouth twice a day Metformin 500mg: Take 1 tablet in the morning and 1 tablet in the evening- Please do NOT start this medication until 07/24/2018. You received IV contrast during your cardiac catheterization so this medication is contraindicated for 48 hours after contrast administration. 2. Follow up with your primary care physician, Dr. Nazario and your butadiene convertor operator (Heart Doctor, Dr. Ulloa) within 3-5 from discharge from the hospital 3. Please review the results of your echocardiogram (heart ultrasound) with your doctors. 4. Please go to the nearest emergency room for evaluation of new or returning symptoms including but not limited to intractable headache, fever, chills, dizziness, chest pain, shortness of breath, abdominal pain, nausea, vomiting, diarrhea, constipation, and urinary symptoms Referrals: Shwetha Ulloa MD [Staff Provider] - Lucille Johnson MD [Primary Care Provider] - <Ava Byrd - Last Filed: 07/22/18 16:28> Provider - Provider Date of Admission: 07/20/18 14:25 Attending physician: Ava Byrd DO Primary care physician: Lucille Nazario MD Consults: 07/20/18 18:40 Inpatient ENGINEER [employer] Core Measures Referral Routine Comment: Physician Instructions: Reason For Exam: EVALUATION Transition In Care/Readmission Reduction Routine Comment: Physician Instructions: Reason For Exam: EVALUATION 07/20/18 21:43 Consult [Physician Consult] Routine Comment: ACS Consulting Provider: Shwetha Ulloa Consulting Physician: Shwetha Ulloa Reason for Consult: ACS 07/20/18 23:46 Diabetic Education Referral Routine Comment: non-compliant with medications at home Physician Instructions: Reason For Exam: protocol Hospital Course - Lab Results Lab Results: Micro Results 07/20/18 15:00 Urine,Clean Catch Urine Culture - Final No Growth (<1,000 CFU/ML) Most Recent Lab Values WBC 7.1 10^3/uL (4.5-11.0) 07/21/18 12:45 RBC 4.97 10^6/uL (3.5-6.1) 07/21/18 12:45 Hgb 15.4 g/dL (14.0-18.0) 07/21/18 12:45 Hct 45.4 % (42.0-52.0) 07/21/18 12:45 MCV 91.3 fl (80.0-105.0) 07/21/18 12:45 MCH 31.0 pg (25.0-35.0) 07/21/18 12:45 MCHC 33.9 g/dl (31.0-37.0) 07/21/18 12:45 RDW 13.0 % (11.5-14.5) 07/21/18 12:45 Plt Count 203 10^3/uL (120.0-450.0) 07/21/18 12:45 MPV 11.3 fl (7.0-11.0) H 07/21/18 12:45 Neut % (Auto) 51.7 % (50.0-68.0) 07/21/18 12:45 Lymph % (Auto) 36.1 % (22.0-35.0) H 07/21/18 12:45 [place] % (Auto) 9.5 % (1.0-6.0) H 07/21/18 12:45 Eos % (Auto) 2.0 % (1.5-5.0) 07/21/18 12:45 Baso % (Auto) 0.7 % (0.0-3.0) 07/21/18 12:45 Lymph # (Auto) 2.6 (1.2-3.4) 07/21/18 12:45 [place] # (Auto) 0.7 (0.1-0.6) H 07/21/18 12:45 Eos # (Auto) 0.1 (0.0-0.7) 07/21/18 12:45 Baso # (Auto) 0.05 K/mm3 (0.0-2.0) 07/21/18 12:45 Absolute Neuts (auto) 3.66 (1.4-6.5) 07/21/18 12:45 PT 11.1 SECONDS (9.4-12.5) 07/20/18 13:40 INR 1.00 07/20/18 13:40 APTT 33.2 Seconds (26.9-38.3) 07/20/18 13:40 Sodium 140 mmol/L (132-148) 07/21/18 12:45 Potassium 4.3 mmol/L (3.6-5.0) 07/21/18 12:45 Chloride 105 mmol/L (98-107) 07/21/18 12:45 Carbon Dioxide 27 mmol/L (21-33) 07/21/18 12:45 Anion Gap 12 (10-20) 07/21/18 12:45 BUN 11 mg/dL (7-21) 07/21/18 12:45 Creatinine 0.7 mg/dl (0.8-1.5) L 07/21/18 12:45 Est GFR ( Amer) > 60 07/21/18 12:45 Est GFR (Non-Af Amer) > 60 07/21/18 12:45 POC Glucose (mg/dL) 148 mg/dL (65-110) H 07/21/18 16:05 Random Glucose 151 mg/dL (70-110) H 07/21/18 12:45 Hemoglobin A1c 7.8 % (4.2-6.5) H 07/20/18 14:00 Calcium 9.5 mg/dL (8.4-10.5) 07/21/18 12:45 Phosphorus 3.7 mg/dL (2.5-4.5) 07/21/18 07:10 Magnesium 2.0 mg/dL (1.7-2.2) 07/21/18 07:10 Total Bilirubin 0.6 mg/dL (0.2-1.3) 07/21/18 07:10 AST 33 U/L (17-59) 07/21/18 07:10 ALT 26 U/L (7-56) 07/21/18 07:10 Alkaline Phosphatase 83 U/L (38-126) 07/21/18 07:10 Lactate Dehydrogenase 474 U/L (333-699) 07/20/18 13:40 Total Creatine Kinase 155 U/L (35-230) 07/20/18 13:40 Troponin I < 0.01 ng/mL 07/21/18 02:01 Total Protein 6.4 g/dL (5.8-8.3) 07/21/18 07:10 Albumin 3.7 g/dL (3.0-4.8) 07/21/18 07:10 Globulin 2.7 gm/dL 07/21/18 07:10 Albumin/Globulin Ratio 1.4 (1.1-1.8) 07/21/18 07:10 Triglycerides 141 mg/dL (35-160) 07/20/18 14:00 Cholesterol 184 mg/dL (130-200) 07/20/18 14:00 LDL Cholesterol Direct 124 mg/dL (0-129) 07/20/18 14:00 HDL Cholesterol 39 mg/dL (29-60) 07/20/18 14:00 Free T4 1.25 ng/dL (0.78-2.19) 07/20/18 14:00 TSH 3rd Generation 0.87 mIU/mL (0.46-4.68) 07/20/18 14:00 Urine Color Yellow (YELLOW) 07/20/18 14:15 Urine Appearance Clear (CLEAR) 07/20/18 14:15 Urine pH 7.0 (4.7-8.0) 07/20/18 14:15 Ur Specific [place] <= 1.005 (1.005-1.035) 07/20/18 14:15 Urine Protein Negative mg/dL (<30 mg/dL) 07/20/18 14:15 Urine Glucose (UA) Negative mg/dL (NEGATIVE) 07/20/18 14:15 Urine Ketones Negative mg/dL (NEGATIVE) 07/20/18 14:15 Urine Blood Negative (NEGATIVE) 07/20/18 14:15 Urine Nitrate Negative (NEGATIVE) 07/20/18 14:15 Urine Bilirubin Negative (NEGATIVE) 07/20/18 14:15 Urine Urobilinogen 0.2 E.U./dL (<1 E.U./dL) 07/20/18 14:15 Ur Leukocyte Esterase Small Gamaliel/uL (NEGATIVE) H 07/20/18 14:15 Urine RBC 0 - 2 /hpf (0-2) 07/20/18 14:15 Urine WBC 2 - 5 /hpf (0-6) 07/20/18 14:15 Ur Epithelial Cells None /hpf (0-5) 07/20/18 14:15 Urine Bacteria Few /hpf (NONE) 07/20/18 14:15 Attending/Attestation - Attestation I have personally seen and examined this patient.: Yes I have fully participated in the care of the patient.: Yes I have reviewed all pertinent clinical information, including history, physical exam and plan: Yes Notes (Text): Please note this DC summary is for 07/21/18 Patient seen and examined by me with resident at approximately 9:40AM and prior to discharge on 07/21/18. Case including discharge plan discussed with resident. Agree with above with following additions/corrections. Patient is a 58-year-old male with past medical history significant for hypertension, type 2 diabetes, hyperlipidemia, tobacco abuse, and GERD who presents to the emergency room from his primary care doctor's office with chest pain that has been present for approximately 2 months. Please see H&P for full details. Patient was admitted with chest pain, hypertension, bilateral lower extremity edema, noncompliance with medications, DM2, GERD, and tobacco abuse. EKG changes were noted. Troponins were within normal limits. Patient was seen by his butadiene convertor operator. Patient was given a loading dose of Plavix and therapeutic Lovenox in the emergency room. Patient was started on aspirin, Lipitor, and metoprolol. Patient went for cardiac catheterization following day. Patient was found to have critical LAD stenosis of 85% which was stented, RCA was found have chronic total occlusion, preserved LV function, mild gradient of aortic valve. 2-D echo was ordered and done. Patient was advised to follow primary care doctor for results. Primary care doctor was also notified. Metoprolol was stopped. Per butadiene convertor operator, Dr. Ulloa, patient was given RX for Coreg 3.125mg PO BID. Patient also complained of lower extremity edema and calf tenderness. Bilateral lower extremity venous Dopplers were done and were negative for DVT. Patient was found to have an hemoglobin A1c of 7.8. Patient had not been taking his medications for several years. Patient to restart metformin on 07/24/2018 this patient had cardiac catheterization done. Patient was placed on Pepcid for history of GERD. Patient was counseled at length on smoking cessation. Patient was also counseled at length the need for compliance with home medications and follow-up with his primary care doctor. Chest pain resolved. Patient was cleared for discharge by butadiene convertor operator. Patient was discharged home. On day of discharge, patient stated he was feeling better. Patient denied any chest pain. Patient denied pain at cardiac cath left radial site. No shortness of breath or palpitations. No nausea, vomiting, or abdominal pain. Patient was tolerating diet well. No headaches or dizziness. No fevers or chills. No dysuria. Patient was ambulating well. Physical exam: General: Awake and alert lying in bed in no acute distress HEENT: Normocephalic, atraumatic. Extraocular muscles intact. Pupils equal and reactive, no scleral icterus. Oropharynx pink and moist. No pharyngeal erythema or exudate appreciated. Neck supple. Hearing grossly intact. Ears and nose externally unremarkable. Cardiovascular: Regular rhythm. Normal S1 and S2. No murmurs, rubs, or gallops appreciated Pulmonary: Normal respiratory effort. No rhonchi, rales, or wheezing appreciated Gastrointestinal: Soft, Nontender. Nondistended. Positive bowel sounds all 4 quadrants. No guarding. Musculoskeletal: Moves all extremities. Mild calf tenderness bilaterally. Trace lower extremity edema. Central nervous system: AAO x3. No focal deficits appreciated. Dermatologic: Skin warm and dry. Please see chart for full details. Follow up instructions: Patient to follow-up with primary care doctor within 3-5 days. Patient to follow up with Dr. Ulloa within 3-5 days. Patient to stop smoking and take medications as prescribed. All instructions explained to the patient in detail. Patient both understands and agrees to all instructions. Stuart eisenberg instructions also given. Time spent in discharging the patient including chart review, medication reconciliation, discussion with the patient, medical research scientist, consultants, and nursing staff was approximately 45 minutes.
--- NOTE | 2018-07-21 11:49 | PN ---
DATE: 07/21/2018 REASON FOR CONSULTATION AND FOLLOWUP: Acute coronary syndrome, unstable angina. SUBJECTIVE: The patient denies any chest pain, short of breath or any palpitation. The patient not in apparent distress, is status post PTCA of LAD. Feels okay. PHYSICAL EXAMINATION: VITAL SIGNS: Temperature afebrile, heart rate 56, blood pressure 162/74. HEENT: PERRLA. Extraocular muscles intact. NECK: Supple. No carotid bruits. No thyromegaly. CHEST: Clear to auscultation. HEART: S1, S2 regular. ABDOMEN: Soft. EXTREMITIES: Clubbing and cyanosis negative. LABORATORY DATA: EKG shows normal sinus, biphasic T-wave in anterior leads and inferior wall IN of indeterminate age. IMPRESSION: A 58-year-old male with a past medical history significant for hypertension, very noncompliant, does not take medicine 2 years, admitted after being sent for the Port-A-Cath because of the chest pain with acute coronary syndrome. The patient underwent left heart catheterization, found to have critical disease, LAD 85% stenosis, stented. RCA, chronic total occlusion, preserved LV function, mild gradient of aortic valve. RECOMMENDATIONS: Continue aspirin, continue Plavix mandatory for one year, preferably extended period of time. Continue , lisinopril, atorvastatin, and metoprolol. If he remain stable, possible discharge home today. Followup as an outpatient. We will get echo to assess LV function. Thank you Dr. Byrd for providing this opportunity in taking care of the patient, Layne Cochran. Shwetha Ulloa MD
--- NOTE | 2018-07-21 13:03 | CARD ---
APPROVED REPORT Date of service: 07/21/2018 EKG Measurement Heart [id number] <Conclusion> Sinus bradycardia Inferior infarct, age Old? ST & T wave abnormality, consider anterolateral ischemia Abnormal ECG
[2018-07-21 13:04] LABS: BASO # 0.05 K/mm3 (0.0-2.0); BASO % 0.7 % (0.0-3.0); EOS # 0.1 (0.0-0.7); HEMOGLOBIN 15.4 g/dL (14.0-18.0); LYMPH # 2.6 (1.2-3.4); LYMPH % 36.1 % (22.0-35.0); MEAN CELL VOLUME 91.3 fl (80.0-105.0); MEAN CORPUSCULAR HGB CONC 33.9 g/dl (31.0-37.0); MEAN PLATELET VOLUME 11.3 fl (7.0-11.0); MONO # 0.7 (0.1-0.6); MONO % 9.5 % (1.0-6.0); RBC 4.97 10^6/uL (3.5-6.1); WHITE BLOOD COUNT 7.1 10^3/uL (4.5-11.0)
--- NOTE | 2018-07-21 13:09 | CARD ---
APPROVED REPORT Date of service: 07/21/2018 EKG Measurement Heart [id number] <Conclusion> Sinus bradycardia Inferior infarct, age Old? T wave abnormality, consider anterolateral ischemia
[2018-07-21 13:14] LABS: BLOOD UREA NITROGEN 11 mg/dL (7-21); CALCIUM 9.5 mg/dL (8.4-10.5); GFR NON-AFRICAN AMERICAN > 60
[2018-07-21] MEDS ORDERED: Bacitracin 500 Units/gm Oint Foilpak UD ONE (13:58)
[2018-07-21 15:03] VITALS: RESP 18
[2018-07-21 18:01] VITALS: BP 175/79
[2018-07-21 18:20] VITALS: PULSE 58
--- NOTE | 2018-07-21 18:53 | CARD ---
APPROVED REPORT Date of service: 07/21/2018 EXAM: Two-dimensional and M-mode echocardiogram with Doppler and color Doppler. INDICATION ACS/CP/LVFX 2D DIMENSIONS Left Atrium (2D)4.5 (1.6-4.0cm)IVSd1.3 (0.7-1.1cm) LVDd5.3 (3.9-5.9cm)PWd1.2 (0.7-1.1cm) LVDs3.8 (2.5-4.0cm)FS (%) 27.5 % LVEF (%)53.2 (>50%) M-Mode DIMENSIONS Aortic Root3.00 (2.2-3.7cm)Aortic Cusp Exc.1.70 (1.5-2.0cm) Aortic Valve AoV Peak Krualeal837.0cm/Kenneth Peak GR.10mmHg Mitral Valve MV E Oqbkemri30.6cm/sMV A Dbishemp82.1cm/sE/A ratio1.1 TDI Lateral E' Peak V17.90cm/sMedial E' Peak V5.07cm/sE/Lateral E'4.9 E/Medial E'17.3 Pulmonary Valve PV Peak Jcvkndat29.0cm/sPV Peak Grad.2mmHg Tricuspid Valve TR Peak Iaizalmx511qn/sRAP [id number] Peak Gr.7mmHg [id number] LEFT VENTRICLE The left ventricle is normal size. There is mild concentric left ventricular hypertrophy. The left ventricular function is normal. The left ventricular ejection fraction is within the normal range.Ej.Fr: 53%. RIGHT VENTRICLE The right ventricle is normal size. The right ventricular systolic function is normal. ATRIA Lt.Atrium shows Mild Enlargement. The right atrium size is normal. AORTIC VALVE Aortic Valve Leaflets Thickened. Valve Opening Normal. MITRAL VALVE The mitral valve is normal in structure. Mitral regurgitation is trace. TRICUSPID VALVE The tricuspid valve is normal in structure. There is trace tricuspid regurgitation. PERICARDIAL EFFUSION There is no pericardial effusion. <Conclusion> The left ventricle is normal size. There is mild concentric left ventricular hypertrophy. The left ventricular function is normal. The left ventricular ejection fraction is within the normal range.Ej.Fr: 53%. The right ventricle is normal size. The right ventricular systolic function is normal. Lt.Atrium shows Mild Enlargement. The right atrium size is normal. Aortic Valve Leaflets Thickened. Valve Opening Normal. The mitral valve is normal in structure. Mitral regurgitation is trace. The tricuspid valve is normal in structure. There is trace tricuspid regurgitation. There is no pericardial effusion.
--- NOTE | 2018-07-22 19:14 | CARD ---
APPROVED REPORT Date of service: 07/21/2018 Procedure(s) performed: Left Heart Catheterization PTCA with Stenting of Mid LAD with ARDEN HISTORY The patient is a 58 year-old male with a history of : diabetes mellitus with insulin treatment , tobacco history() : The patient is a current smoker , hypertension , dyslipidemia , admitted with ACS/ Unstable angina. INDICATION The indication(s) include : unstable angina . CASE TECHNIQUE The patient was brought emergently to the Cardiac Catheterization Laboratory in a fasting state and was prepped and draped in a sterile manner. The left wrist was infiltrated with 2% Lidocaine subcutaneous anesthesia. A 6FR GLIDESEcatoTH ACCESS KIT sheath was inserted into the left radial artery without difficulty. Coronary angiography was performed using coronary diagnostic catheters. The left coronary system was accessed and visualized with a Diagnostic ,5 Fr JL 4 catheter. The right coronary system was accessed and visualized with a Diagnostic ,5 Fr JR 4 catheter. The left ventricle was accessed and visualized with a 5 Fr JR 4 catheter. Left ventricular/Aortic Valve gradient assessed on pullback. Left ventriculogram was performed in DUNBAR projection. Closure device was deployed with a Fr TR Band (Regular) without any complications. The patient tolerated the procedure well and there were no complications associated with the procedure. Vessel Analysis The patient's coronary anatomy is co-dominant. The left main coronary artery is a medium size vessel without significant stenosis. The left main bifurcates to the left anterior descending and circumflex. The left anterior descending artery is a medium size vessel with diffuse calcification noted throughout this vessel and with significant stenosis. There is a 80-90% stenosis in the mid segment. The first diagonal branch is a medium size vessel with diffuse calcification noted throughout this vessel and without significant stenosis. The circumflex artery is a medium size vessel with diffuse calcification noted throughout this vessel and without significant stenosis. The first obtuse marginal branch is a medium size vessel with diffuse calcification noted throughout this vessel and without significant stenosis. The second obtuse marginal branch is a medium size vessel with diffuse calcification noted throughout this vessel and without significant stenosis. The third obtuse marginal branch is a medium size vessel with diffuse calcification noted throughout this vessel and without significant stenosis. The left posterior descending artery is a medium size vessel with diffuse calcification noted throughout this vessel and without significant stenosis. The right coronary artery is a medium size vessel with diffuse calcification noted throughout this vessel and with significant stenosis. There is a 100% stenosis in the mid segment. Left Ventricle The left ventricle is borderline in size with borderline contractility. Ischemic cardiomyopathy. The left ventricular ejection fraction is estimated to be 50-55%. The left ventricular end diastolic pressure is 12 mmHg. 8-10 mm gradient across aortic valve on pull back. Valves The peak gradient across the aortic valve is 8-10 mmHg. Aortic stenosis Mild . PCI Technique Lesion Anticoagulation was achieved with Heparin and integrellin Boluses. Percutaneous coronary intervention was performed on the mid left anterior descending artery segment. The lesion stenosis prior to intervention was 80-90% with AZALEA 2 flow. A 6 Fr XB 3 Guide Catheter was used to engage the ostium. A EvalYou 182 Interventional Guidewire was used to cross the lesion. BALLOON DILATION A Balloon catheter 2.0 x 8 mm Mini Trek RX was inserted and inflated up to 10.00atm for 15seconds. STENT DEPLOYMENT A drug-eluting stent STENT RESOLUTE PAULINE 2.5 X15 was inserted and inflated up to 12.00atm for 20seconds. POST STENT DEPLOYMENT BALLOON DILATION A Balloon catheter 2.75 x 8 mm Trek RX NC was inserted and inflated up to 14.00atm for 20seconds. Final angiography reveals 0 % stenosis with AZALEA 3 flow. Conclusion Two Vessel critical Disease RCA being [employer] and Mid LAD being culprit vessel for this event. Low normal LV Fx. EF-50-55%, EDP12 mmof Hg. Successful PTCA with ARDEN of Mid LAD. Mild aorticstenosis 8-10 mm gradient on pull back across aortic valve C/w mild Recommendations Smoking Cessation Daily ASA with Plavix for at least one year Aggressive Medical TherapyCardiac Risk Reduction Program Weight Loss Reduction Program CC: Merissa Wood MD
== END 2018-07-21 13:15 | disposition home or self-care (01) | DRG 247 ==
LOC: ED 13:19 → ERH 14:25 → 2RSO 15:34 → UNDODISIN 07-21 20:42
PROVIDERS: ADMIT Hospitalist; ATTEND Hospitalist
PROC: 027034Z Dilation of Coronary Artery, One Artery with Drug-eluting Intraluminal Device, Percutaneous Approach (ICD-10-PCS; principal; 2018-07-21)
PROC: 4A023N7 Measurement of Cardiac Sampling and Pressure, Left Heart, Percutaneous Approach (ICD-10-PCS; 2018-07-21)
PROC: B211YZZ Fluoroscopy of Multiple Coronary Arteries using Other Contrast (ICD-10-PCS; 2018-07-21)
PROC: B215YZZ Fluoroscopy of Left Heart using Other Contrast (ICD-10-PCS; 2018-07-21)
DX: I25.110 Atherosclerotic heart disease of native coronary artery with unstable angina pectoris (principal); I25.5 Ischemic cardiomyopathy; I35.0 Nonrheumatic aortic (valve) stenosis; E11.9 Type 2 diabetes mellitus without complications; E78.5 Hyperlipidemia, unspecified; I10 Essential (primary) hypertension; K21.9 Gastro-esophageal reflux disease without esophagitis; F17.210 Nicotine dependence, cigarettes, uncomplicated; Z91.14 Patient's other noncompliance with medication regimen; Z91.19 Patient's noncompliance with other medical treatment and regimen; Z82.3 Family history of stroke; Z82.49 Family history of ischemic heart disease and other diseases of the circulatory system